=== PATIENT | male | born 2000 | race Caucasian/White ===

== ENCOUNTER 2021-06-22 16:42 | Emergency (ER) | payer MEDICAID ==
[~2021-06-22] VITALS: Ht 177.8 cm; Wt 72.7 kg
[2021-06-22 16:56] VITALS: BP 135/79
== END 2021-06-22 17:21 | disposition home or self-care (01) ==
LOC: ER 16:43
DX: R59.9 Enlarged lymph nodes, unspecified (principal); R05.9 Cough, unspecified; R09.89 Other specified symptoms and signs involving the circulatory and respiratory systems; R50.9 Fever, unspecified
CPT/HCPCS: 99281